=== PATIENT | male | born 1970 | race American Indian/Alaskan Native ===

== ENCOUNTER 2018-04-17 20:35 | Emergency (ER) | payer OTHER ==
--- NOTE | 2018-04-17 21:08 | C.PDOC ---
History Of Present Illness 47 year old male presents to the ER with a complaint of left chest pain for the past 3 days that is positionally and digitally reproducible. Denies fall, strenuous movement, or SOB. Time Seen by Provider: 04/17/18 20:59 Chief Complaint (Nursing): Chest Pain History Per: Patient History/Exam Limitations: no limitations Onset/Duration Of Symptoms: Days (3) Current Symptoms Are (Timing): Still Present Associated Symptoms: denies: Dyspnea Exacerbating Factors: Movement, Other (Palpation) Alleviating Factors: Rest Recent travel outside of the [facility]: No Past Medical History Reviewed: Historical Data, Nursing Documentation, Vital Signs Vital Signs: Last Vital Signs Temp 98.4 F 04/17/18 20:47 Pulse 90 04/17/18 20:47 Resp 14 04/17/18 20:47 BP 149/96 H 04/17/18 20:47 Pulse Ox 97 04/17/18 20:47 Family History: States: Unknown Family Hx - Social History Hx Alcohol Use: Yes Hx Substance Use: No Review Of Systems Constitutional: Negative for: Fever, Chills Cardiovascular: Positive for: Chest Pain Respiratory: Negative for: Shortness of Breath Gastrointestinal: Negative for: Nausea, Vomiting Neurological: Negative for: Weakness, Numbness Physical Exam - Physical Exam Appears: Non-toxic, No Acute Distress, Other (Large very muscular black male) Skin: Normal Color, Warm, Dry Head: Atraumatic, Normacephalic Eye(s): bilateral: Normal Inspection Oral Mucosa: Moist Neck: Normal, Supple Chest: Symmetrical, Tenderness (Digitally reproducible at T4-T5 left parasternal border.) Cardiovascular: Rhythm Regular Respiratory: Normal Breath Sounds, No Rales, No Rhonchi, No Wheezing Gastrointestinal/Abdominal: Soft, No Tenderness Neurological/Psych: Oriented x3, Normal Speech ED Course And Treatment ECG: Interpreted By Me ECG Rhythm: Sinus Rhythm ECG Interpretation: Normal Rate From EC O2 Sat by Pulse Oximetry: 97 (Room air) Pulse Ox Interpretation: Normal Medical Decision Making Medical Decision Making: digitally and positionally reproducable L parasternal chest wall discomfort, unlimited ex christal, normal ekg c/w costochondritis Disposition Doctor Will See Patient In The: Office Counseled Patient/Family Regarding: Studies Performed, Diagnosis - Disposition Referrals: [facility] [Outside] [facility] [Outside] [facility] [Outside] [facility] [Outside] Disposition: HOME/ ROUTINE Disposition Time: 21:07 Condition: GOOD Additional Instructions: motrin 400-600 mg every 6 hours as needed no heavy lifting for 1 week Instructions: Costochondritis Forms: [facility] (Maldivian) - Clinical Impression Clinical Impression: Discomfort of chest wall - Scribe Statement The provider has reviewed the documentation as recorded by the Scribe Tera Babin All medical record entries made by the Scribe were at my direction and personally dictated by me. I have reviewed the chart and agree that the record accurately reflects my personal performance of the history, physical exam, medical decision making, and the department course for this patient. I have also personally directed, reviewed, and agree with the discharge instructions and disposition.
[2018-04-17 21:14] VITALS: BP 149/96; PULSE 90; TEMP 98.4; O2SAT 97
[2018-04-17 21:19] VITALS: RESP 16
--- NOTE | 2018-04-18 18:37 | CARD ---
APPROVED REPORT Date of service: 04/17/2018 EKG Measurement Heart [id number] <Conclusion> Normal sinus rhythm Poor R wave progression may be normal variant Otherwise normal.
== END 2018-04-17 21:18 | disposition home or self-care (01) ==
LOC: C.ER 20:35
DX: R07.89 Other chest pain (principal)